=== PATIENT | male | born 1960 | race American Indian/Alaskan Native ===

== ENCOUNTER 2021-01-10 20:04 | Emergency (ER) | payer OTHER ==
[2021-01-11 01:11] VITALS: BP 153/96
--- NOTE | 2021-01-11 02:13 | XRay Report ---
Cervical spine-3 views INDICATION: neck pain. COMPARISON: None. IMPRESSION: No acute osseous abnormality. Soft tissues are normal. Normal alignment. 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 Signer Name: Nabor Perez MD Signed: 01/11/2021 2:09 AM Workstation Name: [id number]
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
== END 2021-01-11 06:40 | disposition home or self-care (01) ==
LOC: ED 20:04
DX: S16.1XXA Strain of muscle, fascia and tendon at neck level, initial encounter (principal); M54.5 Low back pain; E66.3 Overweight; I10 Essential (primary) hypertension; K21.9 Gastro-esophageal reflux disease without esophagitis; E78.00 Pure hypercholesterolemia, unspecified; E66.9 Obesity, unspecified; Z68.41 Body mass index [BMI] 40.0-44.9, adult; Z79.899 Other long term (current) drug therapy; V49.49XA Driver injured in collision with other motor vehicles in traffic accident, initial encounter; Y92.410 Unspecified street and highway as the place of occurrence of the external cause; Y93.89 Activity, other specified; Y99.8 Other external cause status
CPT/HCPCS: 72040